=== PATIENT | female | born 1995 | race African-American/Black ===

== ENCOUNTER 2020-06-12 22:58 | Emergency (ER) | payer OTHER ==
[~2020-06-12] VITALS: Ht 167.6 cm; Wt 108.9 kg
[2020-06-13] MEDS ORDERED: NAPROXEN500 MG PO (02:41)
== END 2020-06-13 03:11 | disposition home or self-care (01) ==
LOC: ER 22:58
DX: S82.391A Other fracture of lower end of right tibia, initial encounter for closed fracture (principal); W01.198A Fall on same level from slipping, tripping and stumbling with subsequent striking against other object, initial encounter; Y93.02 Activity, running; Y92.89 Other specified places as the place of occurrence of the external cause; Y99.8 Other external cause status